=== PATIENT | female | born 1955 | race Caucasian/White ===

== ENCOUNTER 2017-04-10 06:06 | Day surgery (SDC) | payer BC ==
[~2017-04-10 06:06] MED LIST: AMLODIPINE-VAL1 EACH PO; CALCIUM + VITA1 EAC4 PO; CYCLOBENZAPRINE10 M1 PO; DEMADEX20 M1 PO; ETODOLAC400 MG/TAB PO; GLUCOPHAGE500 M3 PO; IRON325 M2 PO; JANUVIA100 M1 PO; LASIX20 M1 PO; LORTAB 5-325 M1 EAC1 PO; METFORMIN HCL1000 M2 PO; MIRALAX17 G2 PO; PROTONIX40 M2 PO; PROZAC20 M3 PO; WOMEN'S DAILY1 EAC5 PO
[2017-04-10 07:15] LABS: BASO % 0.4 % (0-2); EOS % 3.7 % (0-7); EOSINOPHIL ABSOLUTE COUNT 0.3 tho/cmm (0.0-0.7); HCT-HEMATOCRIT 36.8 % (34.0-49.0); HGB-HEMOGLOBIN 12.2 gm/dl (12.0-15.5); IMMATURE GRANULOCYTES ABSOLUTE 0.02 tho/cmm (0-0.03); IMMATURE GRANULOCYTES PERCENT 0.3 % (0-0.3); LYMPH ABSOLUTE COUNT 1.7 tho/cmm (0.8-4.5); MCH (MEAN CORPUSCULAR HGB) 24.4 pg (28.0-32.0); MCHC MEAN CORPUSCULAR HGB CONC 33.2 % (32.0-36.0); MCV (MEAN CELL VOLUME) 73.5 fl (82.0-96.0); MONO % 5.5 % (0-12); MONOCYTE ABSOLUTE COUNT 0.4 tho/cmm (0.0-1.2); NEUTROPHIL ABSOLUTE COUNT 5.4 tho/cmm (1.6-8.0); NEUTROPHIL-AUTOMATED 5.4 tho/cmm (1.6-8.0); NEUTROPHILS % 68.1 % (40-80); PLATELET COUNT 176 tho/cmm (150-450); RED BLOOD COUNT 5.01 mil/cmm (4.00-5.20); RED CELL DISTRIBUTION WIDTH 22.7 % (12.4-16.4); WHITE BLOOD COUNT 7.9 tho/cmm (4.0-10.0)
[2017-04-10 07:24] LABS: ANION GAP 12 mmol/L (0-20); BLOOD UREA NITROGEN 17 mg/dl (6-24); CALCIUM 9.3 mg/dl (8.5-10.5); CARBON DIOXIDE-VENOUS 26 mmol/L (22-32); CHLORIDE 107 mmol/l (96-110); CREATININE 0.94 mg/dl (0.50-1.10); GLUCOSE 114 mg/dL (70-110); SODIUM 141 mmol/L (135-145); eGFR VALUE FOR BLACK 76 mL/Min
== END 2017-04-10 08:55 ==
LOC: SHSA 06:06 → ENDOS 07:52
PROVIDERS: Anesthesiology
PROC: 0DB68ZX Excision of Stomach, Via Natural or Artificial Opening Endoscopic, Diagnostic (ICD-10-PCS; principal; 2017-04-10)
DX: I85.00 Esophageal varices without bleeding (principal); K29.60 Other gastritis without bleeding; I10 Essential (primary) hypertension; E11.9 Type 2 diabetes mellitus without complications; F32.9 Major depressive disorder, single episode, unspecified; K21.9 Gastro-esophageal reflux disease without esophagitis; Z79.84 Long term (current) use of oral hypoglycemic drugs; Z79.899 Other long term (current) drug therapy; Z88.0 Allergy status to penicillin; Z91.041 Radiographic dye allergy status; Z87.891 Personal history of nicotine dependence; Z86.14 Personal history of Methicillin resistant Staphylococcus aureus infection; Z90.49 Acquired absence of other specified parts of digestive tract; Z90.710 Acquired absence of both cervix and uterus; Z90.89 Acquired absence of other organs; Z98.890 Other specified postprocedural states